=== PATIENT | male | born 1960 | race Caucasian/White ===

== ENCOUNTER 2016-10-02 11:56 | Emergency (ER) | payer MEDICAID, OTHER ==
[~2016-10-02] VITALS: Wt 74.0 kg
[2016-10-02] MEDS ORDERED: TETRACAINE 0.5% 4 ML OPH RIGHT EYE ONE ×2 (13:00→13:30)
[2016-10-02] MEDS ORDERED: MTF1000T PO (13:20)
[2016-10-02] MEDS ORDERED: BENA10TA48 PO (13:20)
[2016-10-02] MEDS ORDERED: ASPI81TA3 PO (13:20)
[2016-10-02] MEDS ORDERED: TETRACAINE 0.5% 15 ML OPH RIGHT EYE ONE (13:30)
[2016-10-02 15:00] VITALS: TEMP 98.2
[2016-10-02] MEDS ORDERED: FLUORESCEIN STRIP RIGHT EYE ONE (16:00)
[2016-10-02] MEDS ORDERED: DIPHTH/TET/ACEL PERTUSS (ADULT) 0.5 ML VIAL IM* ONE (16:30)
[2016-10-02 17:23] VITALS: BP 156/92; PULSE 88; RESP 20
--- NOTE | 2016-10-02 17:56 | RADRPT ---
PROCEDURE: CT orbits without contrast CLINICAL INDICATION: Foreign bodies right eye TECHNIQUE: CT of the orbits without contrast was performed on a multidetector CT scanner, with mult iplanar reformats. One or more of the following dose reduction techniques were used: Automated expo sure control, adjustment in mA and / or kV according to patient size, use of iterative reconstructiv e technique. CTDIvol = 29 mGy and DLP = 306 mGy-cm. COMPARISON: None available. FINDINGS: There are multiple punctate radiopaque foreign bodies at the right periorbital region overlying the anterior globe and also along the surface of the periorbital soft tissues, with additional punctate radiopaque foreign bodies along the surface of the right cheek soft tissues. Right periorbital soft tissue swelling is also seen. Several punctate foci are also seen at the left periorbital region an d at the surface of the left cheek, as well as a couple of foci overlying the right aspect of the no se. No acute fracture is identified. No globes are intact. The optic nerve sheath complexes, extraocul ar muscles and lacrimal glands are unremarkable bilaterally. There is chronic post-traumatic deformi ty of the right zygomatic arch. Paranasal sinuses appear clear. IMPRESSION: 1. Multiple punctate radiopaque foreign bodies at the periorbital regions and surface of the cheeks , right greater than left, and over the right nose, with right periorbital soft tissue swelling. 2. Chronic right zygomatic arch post-traumatic deformity. RPTAT: VV .Gt Qureshi MD, Date Time Electronically viewed and signed by .Gt Qureshi MD, MD on 10/02/2016 17:56 .O/
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
[2016-10-02] MEDS ORDERED: ERYTOPOI RIGHT EYE (18:36)
[2016-10-02] MEDS ORDERED: HYDR-906 PO (18:36)
[2016-10-02] MEDS ORDERED: ERYTHROMYCIN 1 GM OPH OINT RIGHT EYE ONE (19:00)
== END 2016-10-02 19:07 | disposition home or self-care (01) ==
LOC: E/R 11:56
DX: T15.01XA Foreign body in cornea, right eye, initial encounter (principal); H11.421 Conjunctival edema, right eye; E11.9 Type 2 diabetes mellitus without complications; X58.XXXA Exposure to other specified factors, initial encounter; Y92.9 Unspecified place or not applicable; Z23 Encounter for immunization; Z79.84 Long term (current) use of oral hypoglycemic drugs; Z79.82 Long term (current) use of aspirin
CPT/HCPCS: 65220; 70480; 90471; 90715; Z7502; Z7610